=== PATIENT | female | born 1990 | race Caucasian/White ===

== ENCOUNTER 2023-05-05 11:13 | Inpatient (IN) | payer BC ==
[2023-05-05] VITALS (28 sets, daily range): BP systolic 99–168; BP diastolic 57–107
[~2023-05-05] VITALS: Ht 160 cm; Wt 99.2 kg
[~2023-05-05 11:13] MED LIST: IBUP80TA PO; MAPA500T2 PO; TYLE167L PO; prenatal vitamins PO
[2023-05-05] MEDS ORDERED: TUMS500C PO (11:35)
[2023-05-05] MEDS ORDERED: FERR325T81 PO (11:38)
[2023-05-05] MEDS ORDERED: COLA100C5 PO (11:38)
[2023-05-05] MEDS ORDERED: HOME MED LIST COMPLETE! XX SCH (11:50)
[2023-05-05] MEDS ORDERED: LIDOCAINE 1% MDV 20ML VIAL INFIL PRN (12:30)
[2023-05-05] MEDS ORDERED: OXYTOCIN DRIP 30 UNITS in IV 1 EA IV PRN (12:30)
[2023-05-05 12:35] LABS: BASO % 0.2 % (0.0-1.0); EOS # 0.1 10^3/uL (0.0-0.5); EOS % 0.7 % (0.0-3.0); HEMATOCRIT 31.9 % (36.0-47.0); HEMOGLOBIN 10.8 g/dl (12.0-15.5); LYMPH # 1.6 10^3/uL (1.5-5.0); LYMPH % 18.2 % (24.0-44.0); MEAN CORPUSCULAR HEMOGLOBIN 30.3 pg (27.0-33.0); MEAN CORPUSCULAR HGB CONC 33.9 g/dl (32.0-36.5); MEAN CORPUSCULAR VOLUME 89.6 fl (80.0-96.0); MONO # 0.5 10^3/uL (0.0-0.8); NEUTROPHILS # 6.6 10^3/uL (1.5-8.5); NEUTROPHILS % 74.4 % (36.0-66.0); PLATELET COUNT, AUTOMATED 196 10^3/uL (150-450); RED BLOOD COUNT 3.56 10^6/uL (4.00-5.40); WHITE BLOOD COUNT 8.9 10^3/uL (4.0-10.0)
[2023-05-05] MEDS ORDERED: miSOPROStol 50MCG 1/2 TABLET PO ONE (12:35)
[2023-05-05 13:17] LABS: URIC ACID 4.3 MG/DL (3.1-7.8)
[2023-05-05 13:19] LABS: LDH LACTATE DEHYDROGENASE 162 U/L (120-246)
[2023-05-05 13:20] LABS: ALT/SGPT < 9 U/L (7.0-40); AST/SGOT 14 U/L (<34); BILIRUBIN,TOTAL 0.4 MG/DL (0.3-1.2); CREATININE FOR GFR 0.61 MG/DL (0.55-1.30); GLOMERULAR FILTRATION RATE > 60.0 (>60)
[2023-05-05 13:32] LABS: HIV 1&2 SCREEN NEGATIVE (NEGATIVE)
[2023-05-05 13:33] LABS: TOTAL PROTEIN,RANDOM URINE 20.2 MG/DL (0.0-14.0)
[2023-05-05 13:38] LABS: CREATININE,RANDOM URINE 65.3 MG/DL
[2023-05-05 13:40] LABS: HEPATITIS C VIRUS ABY INDEX 0.04 INDEX (<0.8)
[2023-05-05] MEDS ORDERED: OXYTOCIN DRIP 30 UNITS in IV 1 EA IV SCH (17:05)
[2023-05-05] MEDS: LR 1,000 ML IV SCH ×2 (17:29→21:18)
[2023-05-05] MEDS ORDERED: ACETAMINOPHEN 500 MG TAB PO PRN (20:00)
[2023-05-05] MEDS ORDERED: LR 500 ML IV PRN (21:15)
[2023-05-05] MEDS ORDERED: FENTANYL/ROPIVACAINE/NACL BAG 100 ML EPIDURAL SCH (21:15)
[2023-05-05] MEDS ORDERED: EPIDURAL/PCA KEYS XX PRN (21:15)
[2023-05-05] MEDS ORDERED: ePHEDrine SULFATE 25 MG/5 ML(5MG/ML) SYRINGE IVP PRN (21:15)
[2023-05-05] MEDS ORDERED: NALOXONE INJ 0.4MG/1ML VIAL IV PRN (21:15)
[2023-05-05] MEDS ORDERED: ONDANSETRON 4MG 2ML VIAL IV PRN (21:15)
[2023-05-05] MEDS ORDERED: diphenhydrAMINE 50MG/ML VIAL IV PRN (21:15)
[2023-05-06] VITALS (16 sets, daily range): BP systolic 104–138; BP diastolic 56–88; TEMP 97.3; O2SAT 97–98
[2023-05-06] MEDS: LR 1,000 ML IV SCH ×3 (01:06→14:16)
[2023-05-06] MEDS ORDERED: AZITHROMYCIN INJ 500MG VIAL As Ordered ONE (05:17)
[2023-05-06] MEDS ORDERED: AZITHROMYCIN INJ 500 MG, VIAL MATE ADAPTER 1 EACH in NS 250 ML IV ONE (05:20)
[2023-05-06] MEDS ORDERED: LIDOCAINE 2% W/EPINEPHRINE 20ML VIAL **PRES FREE As Ordered ONE ×2 (05:27→05:57)
[2023-05-06] MEDS ORDERED: ONDANSETRON 4MG 2ML VIAL As Ordered ONE ×2 (05:29→06:10)
[2023-05-06] MEDS ORDERED: MORPHINE PRES-FREE INJ 10 MG/10 ML VIAL As Ordered ONE (05:45)
[2023-05-06] MEDS ORDERED: KETOROLAC 60MG 2ML VIAL As Ordered ONE (05:48)
[2023-05-06] MEDS ORDERED: ACETAMINOPHEN 1000MG 100ML IV BAG As Ordered ONE (05:48)
[2023-05-06] MEDS ORDERED: SLF 3 ML SYR IV SCH (05:55)
[2023-05-06] MEDS ORDERED: PERCOCET 5MG/325MG TAB PO PRN ×2 (05:55→06:25)
[2023-05-06] MEDS ORDERED: **NOTE PATIENT COMMENT** MISC XX SCH (05:55)
[2023-05-06] MEDS ORDERED: METOCLOPRAMIDE INJ 10MG/2ML VIAL IV PRN (05:55)
[2023-05-06] MEDS ORDERED: diphenhydrAMINE 50MG/ML VIAL IV PRN (05:55)
[2023-05-06] MEDS ORDERED: NALOXONE INJ 0.4MG/1ML VIAL IV PRN ×2 (05:55)
[2023-05-06] MEDS ORDERED: ONDANSETRON 4MG 2ML VIAL IV PRN (05:55)
[2023-05-06] MEDS ORDERED: ceFAZolin SOD 2 GM in IV 1 EA IV ONE (06:00)
[2023-05-06 06:07] LABS: CORD GAS ABE A -12.3; CORD GAS ABE V -10.9; CORD GAS HCO3 A 16.6 MMOL/L; CORD GAS HCO3 V 18.2 MMOL/L; CORD GAS O2 SAT A 59.2 %; CORD GAS O2 SAT V 63.1 %; CORD GAS PCO2 V 53.2 mmHg; CORD GAS PH A 7.148 UNITS; CORD GAS PH V 7.153 UNITS; CORD GAS PO2 V 29.1 mmHg; CORD GAS SBC A 14.3 MMOL/L; CORD GAS SBC V 15.3 MMOL/L; CORD GAS TCO2 A 18.1 MMOL/L; CORD GAS TCO2 V 19.9 MMOL/L
[2023-05-06] MEDS ORDERED: OXYTOCIN 30UNITS IN 0.9% NaCl 500ML IV BAG As Ordered ONE (06:10)
[2023-05-06] MEDS ORDERED: SIMETHICONE 80MG CHEW TAB PO PRN (06:25)
[2023-05-06] MEDS ORDERED: OXYTOCIN DRIP 30 UNITS in IV 1 EA IV SCH (06:25)
[2023-05-06] MEDS ORDERED: RHOGAM 300MCG (1500IU) INJ IM SCH (06:25)
[2023-05-06] MEDS ORDERED: diphenhydrAMINE 50MG/ML VIAL IM PRN (08:50)
[2023-05-06] MEDS: PRENATAL VITAMINS CHEWABLE TABLET PO SCH (09:00)
[2023-05-06] MEDS: diphenhydrAMINE 50MG/ML VIAL IV PRN ×2 (09:14→14:53)
[2023-05-06] MEDS: KETOROLAC 30 MG/ML 1ML VIAL IV SCH ×3 (12:12→23:47)
[2023-05-07 02:00] VITALS: BP 129/71; O2SAT 98
[2023-05-07] MEDS: IBUPROFEN 800 MG TAB PO SCH ×3 (02:12→17:40)
[2023-05-07 06:00] VITALS: BP 130/74; O2SAT 97
[2023-05-07 07:42] LABS: HEMATOCRIT 26.1 % (36.0-47.0); HEMOGLOBIN 8.7 g/dl (12.0-15.5); MEAN CORPUSCULAR HEMOGLOBIN 30.4 pg (27.0-33.0); MEAN CORPUSCULAR HGB CONC 33.3 g/dl (32.0-36.5); MEAN CORPUSCULAR VOLUME 91.3 fl (80.0-96.0); PLATELET COUNT, AUTOMATED 180 10^3/uL (150-450); RED BLOOD COUNT 2.86 10^6/uL (4.00-5.40); WHITE BLOOD COUNT 11.3 10^3/uL (4.0-10.0)
[2023-05-07] MEDS ORDERED: IBUPROFEN 800 MG TAB PO SCH (08:00)
[2023-05-07] MEDS ORDERED: IBUP80TA PO (09:03)
[2023-05-07] MEDS ORDERED: OXYC1TAB23 PO (09:03)
[2023-05-07] MEDS: PRENATAL VITAMINS CHEWABLE TABLET PO SCH (09:21)
[2023-05-07] MEDS: PERCOCET 5MG/325MG TAB PO PRN (09:23)
[2023-05-07 13:27] VITALS: BP 130/67; O2SAT 98
[2023-05-07] MEDS ORDERED: PERCOCET 5MG/325MG TAB PO ONE (14:25)
[2023-05-07 18:00] VITALS: BP 133/82; O2SAT 98
[2023-05-08] MEDS: PERCOCET 5MG/325MG TAB PO PRN (00:54)
[2023-05-08] MEDS: IBUPROFEN 800 MG TAB PO SCH ×2 (01:35→09:12)
[2023-05-08] MEDS ORDERED: MEASLES,MUMPS,RUBELLA VACCINE INJ (MMR-II) SC.IMMUN ONE (09:00)
[2023-05-08] MEDS: PRENATAL VITAMINS CHEWABLE TABLET PO SCH (09:12)
== END 2023-05-08 12:35 | disposition home or self-care (01) | DRG 540 ==
LOC: M LDO 11:13 → M LDI 11:46 → M OBS 05-06 08:15
PROVIDERS: ADMIT Specialist; ATTEND Specialist
PROC: 10D00Z1 Extraction of Products of Conception, Low, Open Approach (ICD-10-PCS; principal; 2023-05-06 05:18)
PROC: 3E0P7GC Introduction of Other Therapeutic Substance into Female Reproductive, Via Natural or Artificial Opening (ICD-10-PCS; 2023-05-08)
DX: O14.94 Unspecified pre-eclampsia, complicating childbirth (principal); O64.0XX0 Obstructed labor due to incomplete rotation of fetal head, not applicable or unspecified; Z3A.37 37 weeks gestation of pregnancy; Z37.0 Single live birth

== ENCOUNTER → 2025-06-15 | Outpatient (CLI) | payer BC ==
[~2025-06-15] MED LIST changes: +COLA100C5 PO; +FERR325T81 PO; +OXYC1TAB23 PO; +TUMS500C PO
== END ==
LOC: M RAD 07:09
PROVIDERS: ATTEND Orthopaedic Surgery
DX: S92.355A Nondisplaced fracture of fifth metatarsal bone, left foot, initial encounter for closed fracture (principal); M79.672 Pain in left foot; W18.30XA Fall on same level, unspecified, initial encounter; Y92.009 Unspecified place in unspecified non-institutional (private) residence as the place of occurrence of the external cause